=== PATIENT | female | born 1950 | race Caucasian/White ===

== ENCOUNTER → 2020-06-05 09:09 | Outpatient (REF) | payer OTHER, SELFPAY ==
--- NOTE | 2020-06-05 09:20 | CA_ITS ---
Transthoracic Echocardiogram Patient (Last, First, Middle): Cori Cosby B Gender: Female Date of : 1950 Age: 70 Procedure Date: 06/05/2020 Procedure Type: Transthoracic Echocardiogram Location: OP Height: 160.02 cm Weight: 61.24 kg BSA: 1.64 m2 Heart Rate: bpm BP: 128 / 72 mmHg Artificial Breeding Distributor: Inessa MD: Jerry Foreman MD Wage Conciliator: Brad Wright MD Symptoms: ORTHOPNIA Study Quality: Good ECG Rhythm: Sinus Conclusions: - 1. Normal LV systolic function with grade 1 diastolic dysfunction 2. Normal cardiac valvular morphology 3. Normal RV systolic pressure 4. No pericardial effusion Findings Left Ventricle Normal left ventricular size, thickness, and systolic function. The visually estimated ejection fraction is between 60-65%. Spectral Doppler is indicative of an impaired relaxation filling pattern. E/E prime ratio is <8, consistent with normal filling pressures. Evidence suggests grade I (mild) diastolic dysfunction. Right Ventricle Normal right ventricular cavity size and systolic function. Atria Both atria are normal in size. There is lipomatous hypertrophy of the interatrial septum. There is no evidence of interatrial shunt. Aortic Valve Normal aortic valve structure and function. There is no aortic valve stenosis. There is no aortic valve regurgitation. Mitral Valve There is mild anterior and posterior mitral leaflet thickening. There is trace mitral valve regurgitation. There is no mitral valve stenosis. Pulmonic Valve The pulmonic valve is likely normal. Tricuspid Valve Normal tricuspid valve structure. There is trace tricuspid valve regurgitation. The right ventricular systolic pressure is normal. The right ventricular systolic pressure is 27 mmHg. Normal right atrial pressure. There is no evidence of pulmonary hypertension. Great Vessels All visible segments of the aorta are normal in size. The pulmonary artery was not well visualized. Venous The inferior vena cava is normal in size and collapses greater than 50% with inspiration. Pericardium/Pleural There is no evidence of pericardial effusion. Prior Study Comparison No prior study available for comparison. Measurements 2D Linear Measurements RVIDd: 2.74 RVIDd Index: 1.67 IVSd: 0.75 0.6-0.9/0.6-1.0 cm LVIDd: 5.05 3.9-5.3/4.2-5.9 cm LVIDd Index: 3.08 2.4-3.2/2.2-3.1 cm/m2 LVIDs: 3.21 2.0-3.6 cm LVPWd: 0.59 0.7-1.1 cm Ao Root: 3.00 2.1-3.5 cm LA Diam: 3.90 2.7-3.8/3.0-4.0 cm LAIDs Index: 2.38 1.5-2.3 cm/m2 LV Mass: 137.29 67-162/88-224 g LV Mass Index: 83.71 43-95/49-115 g/m2 LVOT Diam: 2.00 3.0+(-)1.3 cm 2D Systolic Function EF 4C: 63.50 >55% EF 2C: 65.30 >55% EF BiP: 65.00 >55% Mitral Valve MV Pk E: 0.68 MV PK A: 0.78 MV Decel Time: 181.00 E/A: 0.90 E'Lateral: 7.62 E'Medial: 8.59 E/E' Med: 7.90 E/E' Lat: 8.90 Aortic Valve AoV Pk James: 1.35 AoV Mn James: 1.02 AoV VTI: 0.34 AoV Pk Grad: 7.00 Aov Mn Grad: 4.00 NORBERTO Cont.VTI: 1.78 LVOT LVOT Pk James: 0.89 LVOT Mn James: 0.56 LVOT VTI: 0.19 LVOT Pk Grad: 3.00 LVOT Mn Grad: 1.00 LVOT Diam: 2.00 LVOT Area: 3.14 Diastolic Function MV Pk E: 0.68 MV Pk A: 0.78 E/A: 0.90 E'Medial: 8.59 E/E' Med: 7.90 E' Laterial: 7.62 E/E' Lat: 8.90 Tricuspid Valve TR Pk James: 2.47 TR Pk Grad: 24.00 RA Press: 3.00 RVSP: 27.00 Great Vessels Aorta Ao Root-2D: 3.00 2.0-3.7 cm Ao Asc: 2.60 2.1-3.4 cm Ao Arch: 2.50 Updated in Other Vendor System with Status of Final Brad Wright MD electronically signed on 06/05/2020 3:54:49 PM with status of Final
== END ==
LOC: HO.CARD 09:09
PROVIDERS: Visit Provider Internal Medicine Cardiovascular Disease
DX: R06.01 Orthopnea (principal)
CPT/HCPCS: 93306

== ENCOUNTER 2020-12-30 08:53 | Outpatient (REF) | payer OTHER, SELFPAY ==
--- NOTE | 2020-12-30 08:57 | EMG_ITS ---
This is a 70-year-old woman with a 1 year history of pain and tingling in the upper extremities, right greater than left. Ten years ago, she had chemotherapy for breast cancer, has no numbness in her feet. CURRENT MEDICATION: Metoprolol 25 mg a day. PHYSICAL EXAMINATION: On examination, there is no atrophy, fasciculations, and no evidence of Phalen or Tinel sign. IMPRESSION: Rule out carpal tunnel syndrome. Nerve conduction EMG study: Mild carpal tunnel syndrome bilaterally. No evidence of peripheral neuropathy. Normal EMG of the right C5-T1 innervated muscles. MD MARIANNA Gerber/ISAAC / [id number]
== END 2020-12-30 08:54 | disposition home or self-care (01) ==
LOC: HO.NEURO 08:53
PROVIDERS: Visit Provider Internal Medicine
DX: R20.0 Anesthesia of skin (principal)
CPT/HCPCS: 95885; 95913

== ENCOUNTER 2022-09-12 07:53 | Outpatient (REF) | payer OTHER, SELFPAY ==
--- NOTE | ~2022-09-12 | MR_ITS ---
EXAMINATION: MR BREAST WITHOUT CONTRAST, BILATERAL CLINICAL INFORMATION: Right greater than left discomfort in reconstructed breasts. Prior MR reports bilateral mastectomy with silicone implant reconstruction. Prior MR reports right reconstruction symptoms. COMPARISON: Outside MRI 05/21/2020. TECHNIQUE: Imaging was performed with a dedicated breast coil. Following a 3-plane localizer, axial fast STIR sequences obtained with breasts in a dedicated breast coil, without and with water saturation. Subsequently sagittal imaging was obtained through both breasts with T1 and T2-weighting as well as T2-weighted sagittal series with silicone suppression. FINDINGS: The patient is status post bilateral mastectomy with retropectoral implant reconstruction. LEFT BREAST: Status post left mastectomy. No chest wall mass on unenhanced MR. There is a retropectoral silicone implant. Increase in radial folds. No free silicone. No evidence of capsular rupture. No significant free fluid. RIGHT BREAST: Status post right mastectomy. No chest wall mass on unenhanced MR. A retropectoral silicone implant demonstrates increase in radial folds. No free silicone. No evidence of capsular rupture. The right implant projects at approximately the same level as the left with no good evidence of migration. There is trace free fluid superolateral to the right implant (series 6 image 12/15). There is no suspicious internal mammary chain or axillary adenopathy. Limited views of the chest and abdomen are unremarkable. MR/MR breast BI wo con IMPRESSION: 1. Status post bilateral mastectomy with intact retropectoral silicone implants. Increase in radial folds. No free silicone or evidence of capsular rupture. 2. Trace free fluid under the upper outer right implant. No evidence of migration. No significant change in position or appearance and compared with prior. ASSESSMENT: LEFT BREAST: BI-RADS 1-Negative. RIGHT BREAST: BI-RADS 2-Benign finding. RECOMMENDATIONS: Clinical follow-up If right breast symptoms persist suggest sonographic follow-up of trace free fluid in 6 months.
== END 2022-09-12 07:54 | disposition home or self-care (01) ==
LOC: HO.MRI 07:53
PROVIDERS: PCP Internal Medicine; Visit Provider Plastic Surgery
DX: T85.43XA Leakage of breast prosthesis and implant, initial encounter (principal)
CPT/HCPCS: 77047

== ENCOUNTER 2022-09-20 14:13 | Outpatient (REF) | payer OTHER, SELFPAY | END 2022-09-20 14:14 | disposition home or self-care (01) | LOC: HO.MRI 14:13 | PROVIDERS: Visit Provider Plastic Surgery | DX: Z13.89 Encounter for screening for other disorder (principal) ==

== ENCOUNTER 2023-11-15 07:59 | Outpatient (REF) | payer OTHER, SELFPAY ==
--- NOTE | ~2023-11-15 | XR_ITS ---
EXAMINATION: XR HAND, RIGHT CLINICAL INFORMATION: Pain in right hand, thumb. COMPARISON: None available. TECHNIQUE: PA, lateral, and oblique views of the right hand. FINDINGS: Radiopaque marker placed by the technologist indicating the area of concern as indicated by the patient at the 1st metacarpophalangeal joint. The bones are diffusely demineralized. Moderate degenerative changes in the 1st carpometacarpal joint with joint space narrowing and hypertrophic change. Mild degenerative changes in the 1st metacarpophalangeal joint. Moderate degenerative changes with hypertrophic change in the IP joint of the thumb. Moderate degenerative changes with hypertrophic change and joint space narrowing in the DIP joint of the 5th digit. Mild degenerative changes and additional scattered IP joints of the digits. XR/XR hand RT min 3V IMPRESSION: Akes-[id number] degenerative changes, as detailed above, most notable in the IP joint of the thumb and 5th digit DIP joint. No displaced fracture identified. Recommend follow up imaging in 10-14 days if fracture is suspected.
== END 2023-11-15 08:00 | disposition home or self-care (01) ==
LOC: HO.HOSX 07:59
PROVIDERS: PCP Internal Medicine; Visit Provider Physician Assistant
DX: G56.03 Carpal tunnel syndrome, bilateral upper limbs (principal); G56.23 Lesion of ulnar nerve, bilateral upper limbs; S63.601A Unspecified sprain of right thumb, initial encounter; X58.XXXA Exposure to other specified factors, initial encounter; Y93.9 Activity, unspecified; Y92.9 Unspecified place or not applicable; Y99.9 Unspecified external cause status
CPT/HCPCS: 73130

== ENCOUNTER 2023-11-15 07:59 | Outpatient (AMB) | payer OTHER, SELFPAY ==
--- NOTE | 2023-11-15 08:17 | MHC.OFFVIS ---
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 Patient reports numbness and tingling in her hands for years that has been recently getting worse. Her right hand is the worse. EMG done previously. No previous tx. She does not use any bracing. She states that she recently jammed her right thumb about 2 weeks ago that she would like evaluated and has been treating with ibuprofen prn. Allergies No Known Allergies Allergy (Verified 11/15/23 08:22) Medication List - Last Reconciled 11/15/23 by Mumtaz Ang PA-C amlodipine 5 mg PO DAILY metoprolol succinate ER 25 mg PO DAILY HPI HPI TRAINING AND DEVELOPMENT SPECIALIST- B/L CTS: Details: 73-year-old right hand dominant female who presents to the office today for evaluation of bilateral hands. She states she has numbness and tingling in her bilateral hands for years which has been recently getting worse. Her symptoms are worse on the right hand. She states the numbness is becoming constant and has to shake her hands out . Her pain is aggravated in the morning and throughout the day. She has not had any previous treatment. She has not tried any bracing for her hands. She also reports she jammed her thumb about 2 weeks ago. She currently states she has pain, soreness and swelling in her thumb and has been taking Tylenol with benefits. [facility]LY [facility] Social History (Updated 11/15/23 @ 08:30 by Mirian Gordon Mika) Patient Tobacco Use Status: Never used Tobacco Current occupational status: employed Current occupation: [employer] [place], right hand dominant Review of Systems Const All systems reviewed & are unremarkable except as noted in HPI and below Physical Exam Const General: cooperative, healthy appearing, comfortable, no acute distress, well developed and alert Orientation/consciousness: patient oriented x3 HEENT Head: Yes normal to inspection, Yes normocephalic and Yes atraumatic Eyes General: appearance normal, both eyes and all related structures Resp Effort & Inspection: normal respiratory effort and able to speak in complete sentences Cardio Rate: regular rate Peripheral pulses: Peripheral pulses 2+ throughout GI Palpation (GI): Soft to palpation Skin Lesions: no lesions Rashes: no rashes Neuro General: patient oriented x3 Extrem Other: Left wrist: Normal to inspection. Tenderness over the carpal canal. Numbness and tingling over the median nerve distribution of the right hand. Able to make a full fist and fully extend all fingers. Positive Tinel's. Right wrist: Normal to inspection. Tenderness over the carpal canal. Numbness and tingling over the median nerve distribution of the right hand. Weakness with finger abduction against resistance. Able to make a full fist and fully extend all fingers. Positive Tinel's along the carpal and cubital tunnel. Right thumb: Normal to inspection. She has diffuse swelling along the cmc joint of the thumb with tenderness along the radial aspect of the thumb and pain with stress testing. No significant laxity noted. Results Reviewed Results Reviewed: EMG/NCS 12/30/20 IMPRESSION: Rule out carpal tunnel syndrome. Nerve conduction EMG study: Mild carpal tunnel syndrome bilaterally. No evidence of peripheral neuropathy. 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 I did explain the procedure and recovery time and that we could do each surgery 6 weeks apart. Due to the new onset of neuropathy, I did order a new EMG/nerve conduction study to evaluate the etiology of her new onset symptoms of symptoms. She was also fit for a comfort cool brace on the right thumb to wear for 1-2 weeks to help immobilize her thumb and reduce swelling. She should wear this at night. She can increase activity as tolerated and see me back once the EMG/NCS study is complete to proceed with booking her surgery. Orders: Orders NE nerve conduction velocity Today R20.0 - Anesthesia of skin, R20.2 - Paresthesia of skin NE electromyogram (EMG) Today R20.0 - Anesthesia of skin, R20.2 - Paresthesia of skin XR hand RT min 3V Today M79.641 - Pain in right hand Patient Instructions: Scribed for Mumtaz Ang PA-C, by Sulaiman Puckett medical charge entry specialist, on 11/15/2023 at 8:15 AM KAT. Mumtaz Clark PA-C, have personally reviewed and agree with the information entered by the scribe. Coding Level of Care Code New Pt Level 3 (05737) Diagnoses Carpal tunnel syndrome, bilateral G56.03 Cubital tunnel syndrome, bilateral G56.23 Sprain of right thumb S63.607J
== END 2023-11-15 09:26 | disposition home or self-care (01) ==
PROVIDERS: PCP Internal Medicine; Visit Provider Physician Assistant
DX: G56.03 Carpal tunnel syndrome, bilateral upper limbs (principal); G56.23 Lesion of ulnar nerve, bilateral upper limbs; S63.601A Unspecified sprain of right thumb, initial encounter
CPT/HCPCS: 99203